=== PATIENT | male | born 1975 ===

== ENCOUNTER 2017-10-11 15:18 | Emergency (ER) | payer OTHER ==
[2017-10-11 15:19] VITALS: BMI 29.8
[2017-10-11 15:24] VITALS: TEMP 98.6
--- NOTE | 2017-10-11 15:47 | ED PDOC ---
Arrival/HPI <Billy Correa - Last Filed: 10/11/17 19:05> - General Historian: Patient - History of Present Illness Time/Duration: Prior to Arrival <Sully Welch - Last Filed: 10/11/17 20:15> - General Chief Complaint: Abnormal Skin Integrity Time Seen by Provider: 10/11/17 15:28 - History of Present Illness Narrative History of Present Illness (Text): 10/11/17 15:33 42-year-old male presents today with a laceration to the left first second and third fingers status post injury. Patient states that he was changing antifreeze and stuck his hand into a car and sustained a laceration. Patient states hand was cut by the fan. Patient denies numbness weakness or tingling in the extremity. Complaining of pain to the laceration sites on the first second and third fingers. Denies fevers or chills. Incident occurred prior to arrival. Patient states his tetanus is up to date. No medications taken for pain. No other complaints (Sully Welch) Past Medical History - Provider Review Nursing Documentation Reviewed: Yes - Travel History Have you recently traveled outside [place] w/in the past 3 mons?: No - Infectious Disease Hx of Infectious Diseases: None - Tetanus Immunization Tetanus Immunization: Up to Date - Past Medical History Past Medical History: No Previous - Psychiatric Hx Depression: No Hx Emotional Abuse: No Hx Physical Abuse: No Hx Substance Use: No - Past Surgical History Past Surgical History: No Previous - Anesthesia Hx Anesthesia: No - Suicidal Assessment Feels Threatened In Home Enviroment: No <Sully Welch - Last Filed: 10/11/17 20:15> Family/Social History - Physician Review Nursing Documentation Reviewed: Yes Family/Social History: Unknown Family HX Smoking Status: Current Some Days Smoker Hx Alcohol Use: No Hx Substance Use: No <Sully Welch - Last Filed: 10/11/17 20:15> Allergies/Home Meds <Billy Correa - Last Filed: 10/11/17 19:05> <Sully Welch - Last Filed: 10/11/17 20:15> Allergies/Adverse Reactions: Allergies No Known Allergies Allergy (Verified 10/11/17 15:20) Review of Systems - Review of Systems Constitutional: absent: Fatigue, Fevers Respiratory: absent: SOB, Cough Cardiovascular: absent: Chest Pain, Palpitations Gastrointestinal: absent: Abdominal Pain, Nausea, Vomiting Musculoskeletal: Arthralgias Skin: Laceration Neurological: absent: Headache, Dizziness <Sully Welch - Last Filed: 10/11/17 20:15> Physical Exam Vital Signs Reviewed: Yes Temperature: Afebrile Blood Pressure: Hypertensive Pulse: Regular Respiratory Rate: Normal Appearance: Positive for: Well-Appearing, Non-Toxic, Comfortable Pain Distress: None Mental Status: Positive for: Alert and Oriented X 3 - Systems Exam Head: Present: Atraumatic Respiratory/Chest: Present: Clear to Auscultation Cardiovascular: Present: Regular Rate and Rhythm Upper Extremity: Present: Normal ROM, NORMAL PULSES, Tenderness (left hand; there is a 3cm jagged, v shaped laceration along the volar aspect distal phalanx of the thumb with decreased sensation at the distal aspect of the thumb ; there is a 2cm jagged laceration of the left 2nd finger along the volar aspect over the middle phalanx with decreased sensation over the lateral distal aspect of finger; 1.5cm jagged v shaped laceration of the middle phalanx of the left 3rd finger slightly decreased sensation to distal tip; no active bleeding. full rom of fingers. distal pulses intact. cap refill <2. ), Capillary Refill < 2s. No: Swelling, Erythema, Neurovascularly Intact, Deformity Neurological: Present: GCS=15, Speech Normal Skin: Present: Warm, Dry Psychiatric: Present: Alert, Oriented x 3 <Sully Welch T - Last Filed: 10/11/17 20:15> Vital Signs Temp Pulse Resp BP Pulse Ox 10/11/17 15:19 98.6 F 82 15 142/100 H 97 Medical Decision Making <Billy Correa - Last Filed: 10/11/17 19:05> <Sully Welch - Last Filed: 10/11/17 20:15> ED Course and Treatment: 10/11/17 16:48 Patient is nontoxic well appearing in no distress. Vital signs are stable. pt is right hand dominant with lacerations to left 1st,2nd, 3rd fingers . Wound irrigated well with high pressure irrigation Tetanus uptodate tramadol ancef 1G given IV xray left hand; FB noted to 2nd middle phalanx soft tissue; Laceration repair: left thumb; 11 sutures left 2nd finger; 8 sutures left 3rd finger; 7 sutures Bacitracin and dressing applied. i discussed results in depth with patient; advised patient of fb in finger and need for f/u with hand specialist ARNAV for foreign body and decreased sensation in finger ; advised taking abx as prescribed. advised return in 10 days for suture removal. Patient was advised to keep the wound clean and dry, apply bacitracin twice daily. Advised to return immediately if signs of infection develop or return if any other concerning symptoms develop. Impression: Laceration, fingers, foreign body finger Motrin every 6 hours as needed for pain Keflex; 1 capsule 4 times daily x 7 days. Keep the wound clean and dry, apply bacitracin twice daily Return in 7-10 days for suture removal Return immediately if signs of infection develop: High fevers, increasing pain, redness, swelling, purulent discharge Follow up with the Hand specialist within the next 2 days. Followup with primary care physician within the next 2 days Return if any other concerning symptoms develop (Sully Welch) - RAD Interpretation Radiology Orders: 10/11/17 15:29 HAND LEFT 3 VIEWS ROUTINE [RAD] Stat - Medication Orders Current Medication Orders: Discontinued Medications Cefazolin Sodium (Ancef 1gm In Ns) 1 gm in 100 mls @ 100 mls/hr IVPB STAT STA PRN Reason: Protocol Stop: 10/11/17 18:21 Last Admin: 10/11/17 17:56 Dose: 100 mls/hr eMAR Start Stop Document 10/11/17 17:56 MR (Rec: 10/11/17 17:57 [id number]) Intravenous Solution Start Date 10/11/17 Start Time 17:56 End Date 10/11/17 End time 18:56 Total Infusion Time 60 Lidocaine HCl (Lidocaine 2% 20ml Vial) 9 ml IJ ONCE STA Stop: 10/11/17 17:43 Tramadol HCl (Ultram) 50 mg PO STAT STA Stop: 10/11/17 15:31 Last Admin: 10/11/17 16:04 Dose: 50 mg MAR Pain Assessment Document 10/11/17 16:04 MR (Rec: 10/11/17 16:05 [id number]) Pain Reassessment Is this a pain reassessment? No Sleep Is patient sleeping during reassessment? No Presence of Pain Presence of Pain Yes Pain Scale Used Pain Scale Used Numeric Location Left, Right or Bilateral Left Pain Location Body Site Hand Description Description Throbbing Intensity of Pain at present 8 Pain Behavior Facial Grimacing Alleviating Factors/Management Medication Techniques Alleviating Factors Medication Procedure: Wound Repair - Procedure Procedure: Wound Repair: 1st, 2nd and 3rd fingers lacerations - Consent Obtained Consent obtained: Verbal - Performed by Performed by: Mid-level Provider - Indications Indication(s):: Laceration - Location Finger:: Left, Thumb, Index, Middle Shape:: Other (jagged) Dimensions Length cm: thumb; 3cm 2nd finger; 2cm 3rd finger 1.5cm Depth:: Subcutaneous fascia - Anesthetic Technique Anesthetic Technique: Regional block (digital block: 3cc injected to thumb, 2nd and 3rd fingers. ) Local/Regional Anesthetic:: Lidocaine 2% - Debris Debris:: Other (? fb left 2nd finger laceration) - Irrigated Irrigated with ml of normal saline: copious amounts of NS using high pressure irrigation - Complexity Complexity:: Simple (one layer) - Wound repair method Sutures:: # (total 26 4.0 nylon sutures interrupted placed. 11 thumb, 8 for 2nd finger, 7 in 3rd finger) - Complications Complications: none - Patient tolerated procedure Patient Tolerated Procedure:: Well <Sully Welch - Last Filed: 10/11/17 20:15> - PA / QUILL WINDER / Resident Statement / has examined the patient and agrees with the treatment plan. <Billy Correa - Last Filed: 10/11/17 19:05> Disposition/Present on Arrival <Billy Correa - Last Filed: 10/11/17 19:05> - Present on Arrival Any Indicators Present on Arrival: No History of DVT/PE: No History of Uncontrolled Diabetes: No Urinary Catheter: No History of Decub. Ulcer: No History Surgical Site Infection Following: None - Disposition Have Diagnosis and Disposition been Completed?: Yes Disposition Time: 19:39 Patient Plan: Discharge <Sully Welch - Last Filed: 10/11/17 20:15> - Disposition Diagnosis: Laceration of finger with foreign body, Finger laceration Disposition: HOME/ ROUTINE Condition: GOOD Discharge Instructions (ExitCare): Laceration (ED), Care For Your Stitches (ED) , Soft Tissue Foreign Body (ED) Additional Instructions: Motrin every 6 hours as needed for pain Keflex; 1 capsule 4 times daily x 7 days. Keep the wound clean and dry, apply bacitracin twice daily Return in 7-10 days for suture removal Return immediately if signs of infection develop: High fevers, increasing pain, redness, swelling, purulent discharge Follow up with the Hand specialist within the next 2 days regarding foreign body in finger. Followup with primary care physician within the next 2 days Return if any other concerning symptoms develop Prescriptions: Cephalexin [Keflex] 500 mg PO QID #28 capsule Ibuprofen [Motrin] 600 mg PO Q6H PRN #20 tab PRN Reason: pain/fever reduction Referrals: Noe Diaz MD [Staff Provider] - Follow up with primary Kofi Kline MD [Staff Provider] - Follow up with primary Linda Dan MD [Non-Staff] - Follow up with primary Dixon Gross MD [Staff Provider] - [place] [facility] [place] - [place] up with primary [facility] [place] - Follow up with primary Renetta Lowery MD [Staff Provider] - Follow up with primary Forms: [facility] (Bangladeshi), WORK NOTE
[2017-10-11] MEDS ORDERED: ceFAZolin 1 gm in NS 1 GM/100 ML BAG IVPB STA (17:22)
[2017-10-11] MEDS ORDERED: Lidocaine 2% Inj (20ml) IJ STA (17:42)
[2017-10-11 20:08] VITALS: BP 138/95; PULSE 95; RESP 16; O2SAT 100
--- NOTE | 2017-10-12 08:42 | RAD ---
PROCEDURE: Left Hand Radiographs. HISTORY: laceration with fan to 1st 2nd 3rd fingers COMPARISON: None available. FINDINGS: BONES: Small ossific density at the level of the 2nd middle phalanx worrisome for small fracture fragment. JOINTS: No dislocation. SOFT TISSUES: Soft tissue swelling. Suspect soft tissue lacerations involving 1st and 2nd digits. No evidence of radiopaque foreign body. OTHER FINDINGS: None. IMPRESSION: Small ossific density at the level of the 2nd middle phalanx worrisome for small fracture fragment. Soft tissue swelling. Suspect soft tissue lacerations involving 1st and 2nd digits. Study marked for PA review.
== END 2017-10-11 19:45 | disposition home or self-care (01) ==
LOC: ED 15:18
DX: S61.012A Laceration without foreign body of left thumb without damage to nail, initial encounter (principal); S61.211A Laceration without foreign body of left index finger without damage to nail, initial encounter; S61.223A Laceration with foreign body of left middle finger without damage to nail, initial encounter; W45.8XXA Other foreign body or object entering through skin, initial encounter; Y93.89 Activity, other specified; Y92.89 Other specified places as the place of occurrence of the external cause
CPT/HCPCS: 12002; 73130; 96365; 99283; J0690